=== PATIENT | female | born 1965 | race Caucasian/White ===

== ENCOUNTER 2016-04-30 02:45 | Emergency (ER) | payer SELFPAY ==
[~2016-04-30] VITALS: Ht 175.3 cm; Wt 68.0 kg
[~2016-04-30 02:45] MED LIST: CYCL-343
--- NOTE | 2016-04-30 03:00 | NUR ---
pt to room, awaiting for eval by lillian.
--- NOTE | 2016-04-30 03:10 | NUR ---
pt came to md station,no s/s of pain at present gait steady,told md she does not want to be seen by ermd and left.
--- NOTE | 2016-04-30 03:11 | NUR ---
lillian talked to her and gave her a verbal aftercare before she went.
[2016-04-30 03:33] VITALS: BP 110/58
--- NOTE | 2016-04-30 03:34 | NUR ---
AT THE BEDSIDE.
== END 2016-04-30 03:11 | disposition home or self-care (01) ==
LOC: ER 02:48
DX: M54.5 Low back pain (principal); M19.90 Unspecified osteoarthritis, unspecified site
CPT/HCPCS: A4663

== ENCOUNTER 2016-05-02 15:59 | Emergency (ER) | payer SELFPAY ==
[~2016-05-02] VITALS: Ht 175.3 cm; Wt 68.0 kg
[2016-05-02] MEDS ORDERED: KETOROLAC TROMETHAMINE 30 MG INJ IM ONE (16:15)
[2016-05-02] MEDS ORDERED: KETOROLAC TROMETHAMINE 30 MG INJ ONE (16:21)
== END 2016-05-02 16:35 | disposition home or self-care (01) ==
LOC: ER 15:59
DX: M54.5 Low back pain (principal); M19.90 Unspecified osteoarthritis, unspecified site
CPT/HCPCS: A4663; J1885

== ENCOUNTER 2018-09-04 23:11 | Emergency (ER) | payer OTHER ==
[~2018-09-04] VITALS: Ht 175.3 cm; Wt 70.3 kg
[~2018-09-04 23:11] MED LIST changes: -CYCL-343; +CYCL10TA9
[2018-09-04] MEDS ORDERED: TRAM50TA2 PO (23:23)
--- NOTE | 2018-09-04 23:51 | NUR ---
Patient discharged to home in stable conditon. Written and verbal after care instructions given. Patient verbalizes understanding of instructions. Walked out ER with no distress noted
== END 2018-09-04 23:52 | disposition home or self-care (01) ==
LOC: ER 23:11
DX: M25.561 Pain in right knee (principal); Z79.899 Other long term (current) drug therapy
CPT/HCPCS: A4663